=== PATIENT | female | born 1980 ===

== ENCOUNTER → 2020-08-09 | Outpatient (CLI) | payer OTHER ==
[~2020-08-09] MED LIST: CRUTCH4 USE; ONDA4 PO; OXYACE5T PO
[2020-08-11 02:09] LABS: CHLAMYDIA TRACHOMATIS, NAA Negative (Negative)
== END ==
LOC: LAB UCHC 12:35 → LAB SHORT 12:35
PROVIDERS: Registered Nurse Community Health
DX: O09.511 Supervision of elderly primigravida, first trimester (principal)
CPT/HCPCS: 87491; 87591

== ENCOUNTER 2021-02-22 06:35 | Inpatient (IN) | payer BC, OTHER ==
[~2021-02-22] VITALS: Ht 165.1 cm; Wt 115.0 kg
[~2021-02-22 06:35] MED LIST changes: +ACYCLOVIR400 MG PO; +PRENATAL TABLE1 EAC2 PO
[2021-02-22 07:09] LABS: BASOPHILS ABSOLUTE AUTO 0.04 K/mm3 (0.00-0.23); BASOPHILS PERCENT AUTO 0 % (0-2); EOSINOPHILS ABSOLUTE AUTO 0.11 K/mm3 (0.00-0.68); EOSINOPHILS PERCENT AUTO 1 % (0-6); Hematocrit 37.1 % (33.0-51.0); Hemoglobin 12.7 g/dL (11.5-16.0); IMMATURE GRAN ABSOLUTE AUTO 0.05 K/mm3 (0.00-0.10); IMMATURE GRAN PERCENT AUTO 1 % (0-1); LYMPHOCYTES ABSOLUTE AUTO 2.06 K/mm3 (0.84-5.20); LYMPHOCYTES PERCENT AUTO 23 % (21-46); MONOCYTES ABSOLUTE AUTO 0.72 K/mm3 (0.16-1.47); MONOCYTES PERCENT AUTO 8 % (4-13); Mean Corpuscular HGB 31.8 pg (26.0-34.0); Mean Corpuscular HGB Conc 34.2 g/dL (31.5-36.5); Mean Corpuscular Volume 93 fL (80-100); NEUTROPHILS ABSOLUTE AUTO 6.15 K/mm3 (1.96-9.15); NEUTROPHILS PERCENT AUTO 67 % (41-73); Platelet Count 247 K/mm3 (150-400); RDW Coefficient Variation 13.7 % (11.7-14.2); RDW Standard Deviation 46.2 fL (35.1-46.3); White Blood Cell Count 9.13 K/mm3 (4.00-11.30)
[2021-02-22 09:00] LABS: SARS-Cov-2 (COVID-19) PCR, MMC NEGATIVE (NEGATIVE)
--- NOTE | 2021-02-22 09:05 | NUR ---
02/22/21 0905 Dorothea Castañeda PRIMARY FOR BREECH PRESENTATION. BABY GIRL DELIVERED AT 0841 WITH 9/9 APGARS. [id number], 6 POUNDS-13 OUNCES. LENGTH 19.5 INCHES, HEAD 13.75 INCHES, CHEST 12.75 INCHES. INFANT TO RADIANT WARMER, THEN SWADDLED AND HELD TO MOM AND DAD.
--- NOTE | 2021-02-22 16:24 | NUR ---
LC. RN ROUNDED TO HELP W/ . INSTRUCT/DEMO CORRECT POSITIONING AND LATCHING. INSTRUCT/DEMO HAND EXPRESSION OF COLOSTRUM. RN UNABLE TO REMOVED COLOSTRUM W/ HAND EXPRESSION. PT STATES HER BREASTS DID NOT GROW IN AND SHE HAS NEVER LEAKED BREASTMILK. PT DENIES PCOS, THYROID ISSUES OR ANY OTHER HORMONAL INBALANCE. WILL CONTINUE TO MONITOR AND ASSESS MILK PRODUCTION WHILE PT IN [facility]. FURTHER SUPPORT OFFERED TO PT SHE DESIRES.
[2021-02-23 05:56] LABS: Hematocrit 32.4 % (33.0-51.0); Hemoglobin 11.1 g/dL (11.5-16.0); Mean Corpuscular HGB 32.3 pg (26.0-34.0); Mean Corpuscular HGB Conc 34.3 g/dL (31.5-36.5); Mean Corpuscular Volume 94 fL (80-100); Mean Platelet Volume 10.6 fL (9.1-12.4); Platelet Count 215 K/mm3 (150-400); RDW Standard Deviation 47.6 fL (35.1-46.3); Red Blood Cell Count 3.44 M/mm3 (3.80-5.20); White Blood Cell Count 10.04 K/mm3 (4.00-11.30)
--- NOTE | 2021-02-23 17:40 | NUR ---
Pt ambulating in hallway with NB in open crib.
[2021-02-24] MEDS ORDERED: Percocet 5-3251 EACH PO (10:10)
[2021-02-24] MEDS ORDERED: IBU800 M1 PO (10:10)
[2021-02-24] MEDS ORDERED: DOCU100 PO (10:11)
--- NOTE | 2021-02-24 13:35 | NUR ---
Printed d/c instructions and teaching reviewed w/pt. Questions answered to her satisfaction. No acute changes t/o shift. Pt denies additional questions/concerns. ID bands matched w/nb and verification form. Pt d/c'd home ambulatory to care of [facility].
--- NOTE | 2021-03-06 11:49 | NUR ---
LATE ENTRY OR SURGICAL CHECKLIST PER EMR AND RN
== END 2021-02-24 13:35 | disposition home or self-care (01) | DRG 787 ==
LOC: BC 06:35
PROVIDERS: ADMIT Family Medicine
PROC: 10D00Z1 Extraction of Products of Conception, Low, Open Approach (ICD-10-PCS; principal; 2021-02-22 07:00)
DX: O32.1XX0 Maternal care for breech presentation, not applicable or unspecified (principal); O98.32 Other infections with a predominantly sexual mode of transmission complicating childbirth; Z3A.39 39 weeks gestation of pregnancy; Z20.822 Contact with and (suspected) exposure to COVID-19; Z37.0 Single live birth; A60.00 Herpesviral infection of urogenital system, unspecified; Z88.0 Allergy status to penicillin; Z91.018 Allergy to other foods; O99.214 Obesity complicating childbirth; E66.9 Obesity, unspecified; Z79.899 Other long term (current) drug therapy; O24.429 Gestational diabetes mellitus in childbirth, unspecified control
CPT/HCPCS: 36415; 85025; 85027; 86850; 86900; 86901; A9270; J0456; J1885; J2250; J2590; J2765; J7050; J7120; U0004

== ENCOUNTER → 2021-05-28 | Outpatient (CLI) | payer OTHER ==
[~2021-05-28] MED LIST changes: +DOCU100 PO; +IBU800 M1 PO; +Percocet 5-3251 EACH PO
== END | disposition home or self-care (01) ==
LOC: LAB SHORT 12:24 → LAB 12:24
DX: U07.1 COVID-19 (principal)
CPT/HCPCS: 85379